=== PATIENT | male | born 1980 | race Caucasian/White ===

== ENCOUNTER 2017-11-06 14:07 | Emergency (ER) | payer OTHER ==
[~2017-11-06] VITALS: Ht 175.3 cm; Wt 80.7 kg
== END 2017-11-06 21:03 | disposition home or self-care (01) ==
LOC: ER 14:07
DX: B35.4 Tinea corporis (principal); B35.3 Tinea pedis

== ENCOUNTER 2017-11-16 14:44 | Emergency (ER) | payer OTHER ==
[~2017-11-16] VITALS: Ht 175.3 cm; Wt 76.2 kg
== END 2017-11-16 18:41 | disposition home or self-care (01) ==
LOC: ER 14:44
DX: B35.3 Tinea pedis (principal)